=== PATIENT | female | born 1995 | race Caucasian/White ===

== ENCOUNTER 2017-10-21 21:03 | Emergency (ER) | payer OTHER ==
[2017-10-21 21:19] VITALS: BP 132/88
[2017-10-21] MEDS ORDERED: Ibuprofen TAB* 600 MG PO ONE (22:30)
--- NOTE | 2017-10-21 22:31 | UC ---
Cris Anderson Gabriel, scribed for Dejah Bernal MD on 10/21/17 at 2229 . HPI Febrile Illness - HPI Summary HPI Summary: This patient is a 21 year old F presenting to [facility] with a chief complaint of a fever since 10/20/17. Patient reports sore throat, sinus congestion, and nasal discharge. Patient denies n/v. Pt denies body ache. Patient was seen at the clinic yesterday and told to take antipyretics and her last dose was 5 hours ago. No cp, sob, cough. No wheeze. no rash. lmp yesterday Patients medication reviewed during this visit. - History of Current Complaint Chief Complaint: UCRespiratory Time Seen by Provider: 10/21/17 22:03 Hx Obtained From: Patient Hx Last Menstrual Period: <1 WEEK AGO Onset/Duration: Started Days Ago - 3, Still Present Timing: Constant Initial Severity: Mild Current Severity: Mild Pain Intensity: 0 Pain Scale Used: 0-10 Numeric Associated Signs and Symptoms: Other: - sore throat, sinus congestion, and nasal discharge - Allergy/Home Medications Allergies/Adverse Reactions: Allergies Allergy/AdvReac Type Severity Reaction Status Date / Time No Known Allergies Allergy Verified 10/21/17 21:18 Home Medications: Home Medications Acetaminophen [Mapap] 1,000 mg PO PRN 10/21/17 [History] Ibuprofen TAB* [Advil TAB*] 400 mg PO PRN 10/21/17 [History] guaiFENesin ER TAB [Mucinex*] 600 mg PO PRN 10/21/17 [History] PMH/Surg Hx/FS Hx/Imm Hx Previously Healthy: Yes Other History Of: Negative For: HIV, Hepatitis B, Hepatitis C - Surgical History Surgical History: None - Family History Known Family History: Negative: Diabetes, Renal Disease, Respiratory Disease, Seizure Disorder - Social History Occupation: Student Lives: Dormitory/Roommates Alcohol Use: None Substance Use Type: None Smoking Status (MU): Never Smoked Tobacco Review of Systems Constitutional: Fever ENT: Sore Throat, Nasal Discharge, Sinus Congestion All Other Systems Reviewed And Are Negative: Yes Physical Exam Triage Information Reviewed: Yes Appearance: Well-Appearing, No Pain Distress, Well-Nourished Vital Signs: Initial Vital Signs Temp 97 F 10/21/17 21:16 Pulse 89 10/21/17 21:16 Resp 16 10/21/17 21:16 BP 132/88 10/21/17 21:16 Pulse Ox 97 10/21/17 21:16 Vital Signs Reviewed: Yes Eye Exam: Normal Eyes: Positive: Conjunctiva Clear ENT Exam: Normal ENT: Positive: Normal ENT inspection, Hearing grossly normal, Pharynx normal, Other - mild fluid left TM no erythema, no exudate turbinates boggy + PND no exudate, no erythema Dental Exam: Normal Neck exam: Normal Neck: Positive: Supple, Nontender, No Lymphadenopathy Respiratory Exam: Normal Respiratory: Positive: Chest non-tender, Lungs clear, Normal breath sounds, No respiratory distress Cardiovascular Exam: Normal Cardiovascular: Positive: RRR, No Murmur, Pulses Normal Abdominal Exam: Normal Abdomen Description: Positive: Nontender, No Organomegaly, Soft Bowel Sounds: Positive: Present Musculoskeletal Exam: Normal Musculoskeletal: Positive: Strength Intact Neurological Exam: Normal Neurological: Positive: Alert Psychological Exam: Normal Psychological: Positive: Normal Response To Family Skin Exam: Normal Course/Dx - Course Assessment/Plan: Pt with head congestion x 2 days + fever responsive to APAP. + fever no chills no mylagia. will check for strep. if neg, symptomatic tx. motrin/apap. secretion precautions. hydrate. school note. return precaution - Diagnoses Clinic Provider Diagnoses: upper resp infection Discharge - Discharge Plan Condition: Stable Disposition: HOME Patient Education Materials: Upper Respiratory Infection (ED) Forms: *School Release [facility] - Additional Instructions: -These infections are spread by oral secretions. Do not share eating or drinking utensils. Frequent hand washing is important. Clean items that may get your secretions on them such as cell phones, ipads, computer mouse, television remotes. Once you start to feel better, change your toothbrush and your pillowcase - Alternate ibuprofen (Advil, Motrin) and tylenol every 3hours for pain. Take with food. do NOT take for more than 4-5 days - Okay to take over the counter decongestant - stay well hydrate. Drink plenty of non-alcoholic, non-caffinated beverage - humidify the air in the room where you sleep - contact your doctor to schedule a follow-up appointment. Contact your doctor or return with questions or concerns The documentation as recorded by the scribe, Lynch,Kavon accurately reflects the service I personally performed and the decisions made by me, Dejah Bernal MD.
== END 2017-10-21 23:00 | disposition home or self-care (01) ==
LOC: UCEAST 21:03
DX: J06.9 Acute upper respiratory infection, unspecified (principal)
CPT/HCPCS: 87651; 99202; A9270-GY; G0463